=== PATIENT | female | born 1970 | race Two or more races ===

== ENCOUNTER 2022-08-11 16:50 | Emergency (ER) | payer MEDICAID ==
[~2022-08-11] VITALS: Ht 182.9 cm; Wt 91.0 kg
[2022-08-11 16:57] VITALS: BP 176/100
[2022-08-11] MEDS ORDERED: ACETAMINOPHEN 325MG TABLET PO ONE (19:15)
== END 2022-08-11 20:10 | disposition home or self-care (01) ==
LOC: ER 16:50
DX: J06.9 Acute upper respiratory infection, unspecified (principal); B34.9 Viral infection, unspecified; I10 Essential (primary) hypertension; F32.9 Major depressive disorder, single episode, unspecified; E78.00 Pure hypercholesterolemia, unspecified; Z98.890 Other specified postprocedural states
CPT/HCPCS: 71045; 99283